=== PATIENT | male | born 1945 | race Caucasian/White ===

== ENCOUNTER 2017-12-02 06:10 | Day surgery (SDC) | payer MEDICARE ==
[2017-11-29 12:23] LABS: HEMATOCRIT 42.8 % (42.0-54.0); HEMOGLOBIN 14.3 g/dL (13.5-17.5); MCH 32.4 pg (26.0-34.0); MCHC 33.4 g/dL (31.0-37.0); MCV 97.1 fL (80.0-100.0); MEAN PLATELET VOLUME 9.7 fL (7.4-10.4); RBC 4.41 10x6/uL (4.20-6.10); WBC 6.2 10x3/uL (4.8-10.8)
[~2017-12-02] VITALS: Ht 190.5 cm; Wt 108.4 kg
[~2017-12-02 06:10] MED LIST: BAYER CHEWABLE81 MG PO; PRINIVIL20 MG PO
[2017-12-02 06:22] VITALS: BP 152/74; Ht 190.5 cm; Wt 108.4 kg
[2017-12-02] MEDS ORDERED: HYDROCODON-ACE1 EAC7 PO (09:43)
[2017-12-02] MEDS ORDERED: FUROSEMIDE20 MG PO (09:45)
[2017-12-02] MEDS ORDERED: FLOMAX0.4 MG PO (09:45)
== END 2017-12-02 15:45 | disposition home or self-care (01) ==
LOC: D.OPS 06:10 → D.PAN 08:00 → D.OPS 15:45
PROVIDERS: Anesthesiology
DX: K40.20 Bilateral inguinal hernia, without obstruction or gangrene, not specified as recurrent (principal); Z01.812 Encounter for preprocedural laboratory examination